=== PATIENT | female | born 1990 | race Hispanic/Latino ===

== ENCOUNTER 2018-09-08 04:42 | Inpatient (IN) | payer MEDICAID, SELFPAY ==
[2018-09-08] MEDS ORDERED: Ringers Lactate 1,000 ML IV PRN (05:17)
[2018-09-08] MEDS ORDERED: METHYLERGONOVINE 0.2MG/ML AMP IM PRN (05:17)
[2018-09-08] MEDS ORDERED: CARBOPROST TROME 250 MCG/ML IM PRN (05:17)
[2018-09-08] MEDS ORDERED: ONDANSETRON 4 MG/2 ML VIAL IV PRN (05:28)
[2018-09-08] MEDS ORDERED: Oxycodone HCl/Acetaminophen 1 TAB TAB PO PRN ×2 (05:28→05:47)
[2018-09-08] MEDS ORDERED: IBUPROFEN 200 MG TAB PO PRN ×2 (05:28→05:47)
[2018-09-08] MEDS ORDERED: ACETAMINOPHEN 500 MG TAB PO PRN ×2 (05:28→05:47)
[2018-09-08] MEDS ORDERED: DIPHENHYDRAMINE 25 MG TAB/CAP PO PRN (05:47)
[2018-09-08] MEDS ORDERED: DOCUSATE NA/SENNA CONC 1 TAB PO PRN (05:47)
[2018-09-08] MEDS ORDERED: BISACODYL 10 MG RECTAL SUPP RECT PRN (05:47)
[2018-09-08 05:48] VITALS: BMI 21.9
[2018-09-08] MEDS ORDERED: OXYTOCIN/LR 20 UNIT/1,000 ML BAG IV SCH (06:00)
[2018-09-08] MEDS ORDERED: Ringers Lactate 1,000 ML IV SCH (06:00)
[2018-09-08] MEDS ORDERED: OXYTOCIN/LR 20 UNITS/1,000 ML BAG IV SCH (06:00)
[2018-09-08 06:03] LABS: RPR Titer ND
[2018-09-08 06:24] LABS: Absolute Lymphocytes (CBC) 1.4 K/uL (0.7-4.9); Absolute Monocytes 0.7 K/uL (0.1-1.3); Absolute Neutrophil 13.3 K/uL (1.8-8.0); Basophils % 0.1 % (0-1.3); Eosinophils % 0.1 % (0-4.4); Hematocrit 27.2 % (36.0-45.0); MPV 9.7 fL (7.6-11.3); Monocytes % 4.3 % (3.3-12.3); RBC Red Blood Cell Count 3.38 M/uL (3.86-4.86)
[2018-09-08] MEDS: METHYLERGONOVINE 0.2 MG TAB PO PRN ×4 (07:56→20:00)
[2018-09-08 08:47] LABS: Blood Morphology Comment NOT SEEN (NOT SEEN); Platelet Estimate ADEQ; Urine White Blood Cell Casts OK
[2018-09-08] MEDS: Oxycodone HCl/Acetaminophen 1 TAB TAB PO PRN ×2 (09:49→15:29)
[2018-09-08 20:22] LABS: RPR (Rapid Plasma Reagin) NON-REACT (NON-REACT)
[2018-09-09] MEDS: Oxycodone HCl/Acetaminophen 1 TAB TAB PO PRN (00:10)
[2018-09-09] MEDS: METHYLERGONOVINE 0.2 MG TAB PO PRN ×2 (04:00)
[2018-09-09] MEDS ORDERED: METHYLERGONOVINE 0.2MG/ML AMP IM ONE (06:17)
--- NOTE | 2018-09-09 06:48 | DN ---
Surgeon: Sammy Vidal MD Hospital Course: Patricia Reid, 28-year-old, 5, para 4, followed antepartum with [facility] without a pparent complications according the patient, drops into our institution complete and on the perineum. Subsequently delivered a term infant, Apgars 9 and 9. No episiotomy. No laceration. Gris torres very of the placenta. Estimated blood loss less than 300 cc. Drop-in lab pending. Final Diagnoses: Term intrauterine 39 weeks. Drop-in delivery, lab pending. VICKY/ANNELIESE Voice ID: [id number] Report ID: [id number]
--- NOTE | 2018-09-09 06:51 | PREOPHP ---
Date of Admission: 09/08/2018 History: A 28-year-old female, 5, para 4, [facility] patient, drops in complete and on the perineu m. Family History: Negative. Allergies: NO ALLERGIES. Physical Examination: Normal. HEENT: Clear. Pupils equal, round, reactive to light and accommodation. Conjunctivae well perfused . No oral, lingual, or buccal lesions. Chest and Lungs: Clear. Breasts: Not examined. Abdomen: Term size. Extremities: Clear without edema, cyanosis, or clubbing. Pelvic: Complete and on the perineum as stated. Assessment/plan: Anticipated vaginal delivery. VICKY/ANNELIESE Voice ID: [id number]
[2018-09-09 07:16] VITALS: BP 141/81; TEMP 98.6
--- NOTE | 2018-09-09 15:06 | DS ---
Date of Discharge: 09/09/2018 Hospital Course: A 28-year-old, 5, para 4, 39 weeks gestation, [facility]. [facility] in active rapidly advancing labor. Gianna anna spontaneously of an estimated 6- to 7-pound female, Apgars 9 and 9. No episiotomy. No lacerat ion. Schultze delivery of the placenta, which was inspected and noted be intact and normal. Less th an 300 cc blood loss. Beta strep status unknown, but delivered so rapidly that antibiotics would not have been able to be given anyway. afebrile, ambulating and voiding. Lochia is normal. She will contact [facility], as she is wanting tubal sterilization and signed the permit. She knows that is done 6 weeks , but she needs to contact them now for further instructions. Rubella stat us is unknown. Will be offered rubella immunization. Tdap as well. Final Diagnoses: Term intrauterine 39 weeks. Drop-in delivery. Tdap and rubella immuniza tions offered. VICKY/ANNELIESE Voice ID: [id number] Report ID: [id number]
[2018-09-11 11:30] LABS: HBsAG Nonreactive (Nonreactive)
== END 2018-09-09 10:00 | disposition home or self-care (01) | DRG 807 ==
LOC: 2ND-WC 04:42
PROVIDERS: ADMIT Specialist; ATTEND Specialist
PROC: 10E0XZZ Delivery of Products of Conception, External Approach (ICD-10-PCS; principal; 2018-09-08)
DX: O80 Encounter for full-term uncomplicated delivery (principal); Z37.0 Single live birth; Z3A.39 39 weeks gestation of pregnancy
CPT/HCPCS: 36415; 85025; 86592; 86900; 86901; 87340; G0433; J2210